=== PATIENT | female | born 1950 | race Caucasian/White ===

== ENCOUNTER → 2022-05-26 | Outpatient (CLI) | payer MEDICARE ==
[~2022-05-26] MED LIST: AZOR 10-20 MG1 EACH PO; CYCLOBENZAPRINE10 MG PO; FAMOTIDINE40 MG PO; FENOFIBRATE48 MG PO; HYDROCODON-ACE1 EAC2 PO; JANUVIA100 MG PO; LEVOTHYROXINE125 MC1 PO; LINZESS145 MCG PO; METFORMIN HCL500 M2 PO; MIRTAZAPINE15 MG PO; NADOLOL20 MG PO; VITAMIN D3; XIFAXAN550 MG PO
[2022-05-26 13:38] LABS: HEMOGLOBIN 13.7 gm/dl (12.3-15.3); RED BLOOD COUNT 4.57 M/UL (4.00-5.10); WHITE BLOOD COUNT 4.8 K/UL (4.5-11.0)
[2022-05-26 13:58] LABS: BUN/CREATININE RATIO 20 (0-10)
== END ==
LOC: OPSV2 12:20
PROVIDERS: Podiatrist Foot & Ankle Surgery
DX: Z01.812 Encounter for preprocedural laboratory examination (principal); S82.842A Displaced bimalleolar fracture of left lower leg, initial encounter for closed fracture
CPT/HCPCS: 80048; 85027; 93005

== ENCOUNTER → 2022-06-04 | Day surgery (SDC) | payer MEDICARE ==
[~2022-06-04] VITALS: Ht 160 cm; Wt 71.2 kg
[~2022-06-04] MED LIST changes: +LACTULOSE20 GM/30 M PO
== END | disposition home or self-care (01) ==
LOC: OR 06:11
PROVIDERS: Podiatrist Foot & Ankle Surgery
PROC: 0SSG04Z Reposition Left Ankle Joint with Internal Fixation Device, Open Approach (ICD-10-PCS; 2022-06-04)
PROC: 0QSH04Z Reposition Left Tibia with Internal Fixation Device, Open Approach (ICD-10-PCS; 2022-06-04)
PROC: 0HBRXZZ Excision of Toe Nail, External Approach (ICD-10-PCS; 2022-06-04)
PROC: 3E0T3BZ Introduction of Anesthetic Agent into Peripheral Nerves and Plexi, Percutaneous Approach (ICD-10-PCS; 2022-06-04)
PROC: 3E0T3BZ Introduction of Anesthetic Agent into Peripheral Nerves and Plexi, Percutaneous Approach (ICD-10-PCS; 2022-06-04)
PROC: 0QSH04Z Reposition Left Tibia with Internal Fixation Device, Open Approach (ICD-10-PCS; principal; 2022-06-04 13:20)
DX: S82.842A Displaced bimalleolar fracture of left lower leg, initial encounter for closed fracture (principal); S93.432A Sprain of tibiofibular ligament of left ankle, initial encounter; E11.40 Type 2 diabetes mellitus with diabetic neuropathy, unspecified; B35.1 Tinea unguium; I10 Essential (primary) hypertension; E78.5 Hyperlipidemia, unspecified; G47.30 Sleep apnea, unspecified; K21.9 Gastro-esophageal reflux disease without esophagitis; K74.60 Unspecified cirrhosis of liver; M06.9 Rheumatoid arthritis, unspecified; H40.9 Unspecified glaucoma; F03.90 Unspecified dementia, unspecified severity, without behavioral disturbance, psychotic disturbance, mood disturbance, and anxiety; E03.9 Hypothyroidism, unspecified; Z79.84 Long term (current) use of oral hypoglycemic drugs; Z79.890 Hormone replacement therapy; Z79.899 Other long term (current) drug therapy; X50.1XXA Overexertion from prolonged static or awkward postures, initial encounter; W19.XXXA Unspecified fall, initial encounter
CPT/HCPCS: 73610; 76000; 82962; C1713; C1769; J0690; J1100; J1885; J2001; J2250; J2370; J2405; J2704; J2795; J3010; J3370

== ENCOUNTER → 2022-06-12 | Outpatient (CLI) | payer MEDICARE | LOC: KOH-I 15:15 | DX: S82.842D Displaced bimalleolar fracture of left lower leg, subsequent encounter for closed fracture with routine healing (principal) | CPT/HCPCS: 73610 ==

== ENCOUNTER → 2022-06-30 | Outpatient (CLI) | payer MEDICARE | LOC: KOH-I 14:29 | DX: S82.842D Displaced bimalleolar fracture of left lower leg, subsequent encounter for closed fracture with routine healing (principal) | CPT/HCPCS: 73610 ==

== ENCOUNTER 2022-07-03 16:51 | Emergency (ER) | payer MEDICARE ==
[2022-07-03 18:54] LABS: HEMOGLOBIN 12.2 gm/dl (12.3-15.3); RED BLOOD COUNT 3.97 M/UL (4.00-5.10); WHITE BLOOD COUNT 2.7 K/UL (4.5-11.0)
[2022-07-03 19:14] LABS: BUN/CREATININE RATIO 22 (0-10)
== END 2022-07-03 20:18 | disposition home or self-care (01) ==
LOC: ER1 16:51
PROVIDERS: Emergency Medicine
DX: U07.1 COVID-19 (principal); D64.9 Anemia, unspecified; D69.6 Thrombocytopenia, unspecified; D72.819 Decreased white blood cell count, unspecified; E11.9 Type 2 diabetes mellitus without complications
CPT/HCPCS: 71045; 80053; 82550; 82553; 84484; 85025; 96360; 99284